=== PATIENT | female | born 1965 | race Caucasian/White ===

== ENCOUNTER → 2017-12-07 | Outpatient (CLI) | payer OTHER | LOC: MC.RAD 07:26 | DX: Z12.31 Encounter for screening mammogram for malignant neoplasm of breast (principal) ==

== ENCOUNTER → 2019-11-03 | Outpatient (CLI) | payer OTHER | LOC: MC.RAD 05-05 07:15 | DX: Z12.31 Encounter for screening mammogram for malignant neoplasm of breast (principal) ==